=== PATIENT | female | born 1950 | race African-American/Black ===

== ENCOUNTER 2023-11-22 17:08 | Emergency (ER) | payer MEDICARE, OTHER, SELFPAY ==
[2023-11-22 17:11] VITALS: BP 166/121; BMI 35.9
[2023-11-22 17:31] LABS: % Basophils 0.3 % (0-2); % Eosinophils 0.3 % (0-6); % Immature Granulocytes 0.3 % (0-0.5); % Lymphocytes 11.6 % (20.5-51.1); % Monocytes 5.3 % (1.7-9.3); % Neutrophils 82.2 % (42.2-75.2); Absolute Lymphocytes 1.2 10^3/uL (1.2-3.4); Absolute Monocytes 0.6 10^3/uL (0.1-0.6); Absolute Neutrophils 8.8 10^3/uL (1.4-6.5); Hematocrit 37.7 % (37.0-47.0); Hemoglobin 12.9 g/dL (12.0-16.0); Mean Corp Hgb Conc. 34.2 g/dL (33.0-37.0); Mean Corpuscular Hgb 29.5 pg (27.0-31.0); Mean Corpuscular Volume 86.3 fL (81.0-99.0); Nucleated Red Blood Cells % 0 %; Platelet Count 246 10^3/uL (130-400); Red Blood Cell Count 4.37 10^6/uL (4.20-5.40); Red Cell Dist. Width 15.8 % (11.5-14.5); White Blood Cell Count 10.7 10^3/uL (4.8-10.8)
[2023-11-22 17:52] LABS: ALT (SGPT) 21 U/L (0-35); AST (SGOT) 23 U/L (14-36); Albumin 4.2 g/dl (3.5-5.0); Alkaline Phosphatase 137 U/L (38-126); Blood Urea Nitrogen 17 mg/dl (7-17); Calcium 9.3 mg/dl (8.4-10.2); Carbon Dioxide 27 mmol/L (22-30); Chloride 102 mmol/L (98-107); Estimated Creatinine Clearance 54 ml/min; Glucose 90 mg/dl (70-99); Lipase 203 U/L (23-300); Potassium 3.9 mmol/L (3.5-5.1); Sodium 134 mmol/L (135-145); Total Bilirubin 0.7 mg/dl (0.2-1.3); Total Protein 6.9 g/dl (6.3-8.2); eGFR > 60.00
[2023-11-22] MEDS: MORPHINE SULFATE 4 MG IV (21:33)
[2023-11-22] MEDS: NSS 250 IV (21:33)
[2023-11-22 21:45] VITALS: BP 113/58
--- NOTE | 2023-11-22 23:02 | ED.GENMED ---
History of Present Illness
General
Chief Complaint: Abdominal Pain
Source: patient and spouse
Exam Limitations: none
Time Seen by Provider: 11/22/23 20:57
Nursing documentation reviewed up to this point in time: agreed with
Travel History
Have you had any contact with someone who has COVID-19?: No
Do you have any symptoms of coronavirus? Fever > 100 degrees, chills, cough, shortness of breath, sore throat, loss of taste or smell, muscle aches, or headache?: No
History of Present Illness
History of Present Illness:
73-year-old female past medical history of stroke currently taking Plavix presenting to the emergency department today with concerns of left lower quadrant abdominal pain initially had some constipation and some mild diarrhea over the past few days
as well. Denies any fever chest pain shortness of breath nausea or vomiting.
Review of Systems
Review of Systems
Allergies reviewed?: Yes
All Other Systems: ROS reviewed and negative except as documented in HPI and ROS
Phy Exam
Physical Exam
Physical Exam:
GENERAL: Alert , in no apparent distress
EYE: pupils equal and reactive
NECK: Supple, no significant adenopathy.
ENT: o/p clr, mmm.
CARDIAC: Regular rate and rhythm .
LUNGS: Clear breath sounds bilaterally, no acute respiratory distress, no wheezes/rales/rhonchi
ABDOMEN: Tenderness palpation left lower quadrant no significant guarding no peritoneal signs otherwise soft benign abdomen
NEUROLOGICAL: Alert and oriented, no focal neuro deficits
SKIN: Warm and dry, skin intact.
MUSCULOSKELETAL: No edema, well perfused.
PSYCH: Normal and appropriate interaction.
Course
Orders/Labs/Results
Orders:
Orders
11/22/23 17:23
Complete Blood Count/With Diff Urgent
Comprehensive Metabolic Panel Urgent
Lipase Urgent
11/22/23 21:07
Abdomen/Pelvis w Contrast CT [CT Abd/pelvis W Iv Cont] Urgent
Comment:
Reason For Exam: llq pain
Urinalysis Reflex To Culture Urgent
0.9% Sodium Chloride 250 ml [Nss] 250 ml IV BOLUS
Morphine Sulfate 4 mg IV NOW STA
11/22/23 23:49
Amoxicillin 875 mg/Clav 125 mg [Augmentin 875 mg/125 mg] 1 tablet PO NOW STA
Morphine Sulfate 4 mg IV NOW STA
Abnormal Lab Results
11/22/23
17:23
RDW 15.8 H %
(11.5-14.5)
Absolute Neuts (auto) 8.8 H 10^3/uL
(1.4-6.5)
Neutrophils % 82.2 H %
(42.2-75.2)
Lymphocytes % 11.6 L %
(20.5-51.1)
Sodium 134 L mmol/L
(135-145)
Alkaline Phosphatase 137 H U/L
(38-126)
11/22/23 17:23
11/22/23 17:23
Vital Signs
Initial and Last Documented VS:
Initial Vital Signs
Temp Pulse Resp BP Pulse Ox
99.1 F 96 16 166/121 99
11/22/23 17:11 11/22/23 17:11 11/22/23 17:11 11/22/23 17:11 11/22/23 17:11
Last Documented Vital Signs
Temp Pulse Resp BP Pulse Ox
99.1 F 86 18 113/58 93
11/22/23 17:11 11/22/23 21:45 11/22/23 21:45 11/22/23 21:45 11/22/23 21:45
MDM/Problems Addressed
MDM/Problems Addressed:
73-year-old female presenting to the emergency department today with concerns of left lower quadrant abdominal pain over the past few days. Has had some constipation and mild diarrhea over the past few days as well. Here she has tenderness
palpation left lower quadrant otherwise vital signs are normal no white count CT scan confirming diverticulitis without complication. Patient reassessed with improving symptoms no white count no fever no signs of complication stable for outpatient
management return precautions given.
*Critical Care Note
Total Time (30-74mins, 75-104mins- exclusive of procedures): Not Applicable
ED Attending Note
-
Portions of this chart may have been created with voice recognition software.� Occasional wrong word or��sound alike� substitutions may have occurred due to the inherent limitations of voice recognition software.
Discharge Plan
Departure
Patient Disposition: Home (Routine Discharge)
Date of Disposition: 11/23/23
Time of Disposition: 00:49
Patient with high blood pressure during this ER visit?: No
Condition: Good
Covid-19: Not Applicable
Discharge Problem:
Diverticulitis
Instructions: Diverticulitis (DC)
Prescriptions:
New
ondansetron 4 mg tablet,disintegrating
4 mg PO Q8H PRN (Reason: nausea and vomiting) Qty: 10 0RF
amoxicillin-pot clavulanate 875-125 mg tablet
1 tab PO BID 7 Days Qty: 14 0RF
Referrals:
Eddie Herzog MD [Active] - Follow up in 5-7 days
Lj Packer MD [Family Provider] -
Activity Restrictions/Additional Instructions:
You came to the emergency department today with concerns of abdominal discomfort. You are found to have diverticulitis. Please take Augmentin twice daily over the next 7 days as symptoms will hopefully start to improve. Please have close with
your primary care doctor and GI. Return to the emergency department any worsening, new or concerning symptoms.
Interventions
Interventions:
*Risk Screen - Suicide Last Done: 11/22/23 17:11
*Neglect/Abuse Screening Last Done: 11/22/23 17:11
ED- Fall Risk Assessment Last Done: 11/22/23 21:38
*ED COVID-19 Vaccine History Last Done: 11/22/23 17:11
IA-Fzynov-Ylzfbbvfux Assessment Last Done: 11/22/23 22:58
[2023-11-23] MEDS: AUGMENTIN 875 MG/125 MG 1 TABLET PO (00:08)
[2023-11-23] MEDS: MORPHINE SULFATE 4 MG IV (00:08)
[2023-11-23 01:15] VITALS: BP 110/60
== END 2023-11-23 01:19 | disposition home or self-care (01) ==
LOC: EMR 17:08
PROVIDERS: Emergency Medicine; EMERGENCY PHYSICIAN Emergency Medicine; FAMILY PHYSICIAN Family Medicine
DX: K57.32 Diverticulitis of large intestine without perforation or abscess without bleeding (principal)
CPT/HCPCS: 99285; 96374; 96376; 74177; 80053; 83690; 85025; Q9967